=== PATIENT | male | born 1955 | race Caucasian/White ===

== ENCOUNTER 2018-04-17 15:14 | Emergency (ER) | payer BC ==
[2018-04-17 15:26] VITALS: TEMP 98.1; BMI 25.6
--- NOTE | 2018-04-17 15:39 | PDOC ---
History of Present Illness - General Chief Complaint: Chest Pain Stated Complaint: CHEST PAIN Time Seen by Provider: 04/17/18 15:19 History Source: Patient Exam Limitations: No Limitations - History of Present Illness Initial Comments: 04/17/18 15:40 Patient is a 62M with history of HLD, CAD s/p stents x2 here today complaining of chest pain over the past two weeks, worsening last night. Patient states that this doesn't feel as bad as his prior MIs, but does feel similar. He describes a substernal pressure that does not change with position, palpation, inspiration, activation or rest. Denies fevers, chills, nausea, vomiting. Denies history of blood clots, recent travel, unilateral leg swelling. 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 Stents done in [facility] and [facility]. Past History - Past Medical History Allergies/Adverse Reactions: Allergies Allergy/AdvReac Type Severity Reaction Status Date / Time No Known Allergies Allergy Verified 05/20/17 13:41 Home Medications: Ambulatory Orders Aspirin Coated [Ecotrin -] 325 mg PO HS 05/20/17 Clopidogrel Bisulfate [Clopidogrel] 75 mg PO HS 05/20/17 Lisinopril 10 mg PO HS 05/20/17 Simvastatin 40 mg PO HS 05/20/17 Metoprolol Succinate [Toprol Xl] 50 mg PO DAILY 04/17/18 Cardiac Disorders: Yes ([place], STENTS) COPD: No Hypercholesterolemia: Yes - Surgical History Abdominal Surgery: Yes (AGE 6) Cardiac Surgery: Yes (STENTS) - Suicide/Smoking/Psychosocial Hx Smoking History: Never smoked Have you smoked in the past 12 months: No Hx Alcohol Use: Yes (RARE) Drug/Substance Use Hx: No Substance Use Type: None Review of Systems - Review of Systems Comments:: 04/17/18 15:44 GENERAL/CONSTITUTIONAL: No fever or chills. No weakness. HEAD, EYES, EARS, NOSE AND THROAT: No change in vision. No ear pain or discharge. No sore throat. CARDIOVASCULAR: +chest pain No shortness of breath RESPIRATORY: No cough, wheezing, or hemoptysis. GASTROINTESTINAL: No nausea, vomiting, diarrhea or constipation. GENITOURINARY: No dysuria, frequency, or change in urination. MUSCULOSKELETAL: No joint or muscle swelling or pain. No neck or back pain. SKIN: No rash NEUROLOGIC: No headache, vertigo, loss of consciousness, or change in strength/ sensation. ENDOCRINE: No increased thirst. No abnormal weight change HEMATOLOGIC/LYMPHATIC: No anemia, easy bleeding, or history of blood clots. ALLERGIC/IMMUNOLOGIC: No hives or skin allergy. *Physical Exam - Vital Signs Last Vital Signs Temp Pulse Resp BP Pulse Ox 98.1 F 80 16 114/68 99 04/17/18 15:14 04/17/18 15:14 04/17/18 15:14 04/17/18 15:14 04/17/18 15:14 - Physical Exam Comments: 04/17/18 15:46 GENERAL: Awake, alert, and fully oriented, in no acute distress HEAD: No signs of trauma, normocephalic, atraumatic EYES: PERRLA, EOMI, sclera anicteric, conjunctiva clear ENT: Auricles normal inspection, hearing grossly normal, nares patent, oropharynx clear without exudates. Moist mucosa NECK: Normal ROM, supple, no lymphadenopathy, JVD, or masses LUNGS: No distress, speaks full sentences, clear to auscultation bilaterally HEART: Regular rate and rhythm, normal S1 and S2, no murmurs, rubs or gallops, peripheral pulses normal and equal bilaterally. ABDOMEN: Soft, nontender, normoactive bowel sounds. No guarding, no rebound. No masses EXTREMITIES: Normal inspection, Normal range of motion, no edema. No clubbing or cyanosis. NEUROLOGICAL: Cranial nerves II through XII grossly intact. Normal speech, normal gait, no focal sensorimotor deficits SKIN: Warm, Dry, normal turgor, no rashes or lesions noted. ED Treatment Course - LABORATORY CBC & Chemistry Diagram: 04/17/18 15:45 04/17/18 15:45 - RADIOLOGY Radiology Studies Ordered: Category Date Time Status CHEST X-RAY PORTABLE* [RAD] Stat Radiology 04/17/18 15:21 Ordered Medical Decision Making - Medical Decision Making 04/17/18 15:47 Patient is a 62M with history of bigeminy, CAD s/p stenting x2, HLD here today complaining of chest pain. Vitals normal and stable. DDx includes, but is not limited to: ACS, arrhythmia, pneumonia. Will do cbc, cmp, trop, pt/inr, ekg chest x-ray. Patient is stating that he does not wish to be admitted. EKG #1 shows sinus rhythm with pattern of bigeminy . No st elevations/ depressions. Left axis. Normal intervals. No significant t wave abnormalities. EKG #2 shows normal sinus rhythm with one PVC. No st elevations/depressions. Left axis. Normal intervals. No significant t wave abnormalities. 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 Refusing second trop. Will AMA after first troponin. 04/17/18 16:57 Trop negative. Patient will AMA. Return precautions given. *DC/Admit/Observation/Transfer Diagnosis at time of Disposition: Chest pain - Discharge Dispostion Disposition: AGAINST MEDICAL ADVICE Condition at time of disposition: Stable Decision to Admit order: No - Referrals - Patient Instructions Printed Discharge Instructions: DI for Chest Pain Additional Instructions: You were seen today in the ED for Chest Pain and left against medical advice. You are welcome to return at any time. Please return if you have any new, worsening or concerning symptoms. 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 - Post Discharge Activity
[2018-04-17 16:05] LABS: BASO % 0.6 % (0-2.0); EOS % 3.3 % (0-4.5); HEMATOCRIT 40.3 % (35.4-49); HEMOGLOBIN 13.7 GM/dl (11.7-16.9); LYMPH % 20.2 % (8-40); MCH 31.9 pg (25.7-33.7); MEAN CELL VOLUME 93.9 fl (80-96); MONO % 8.2 % (3.8-10.2); NEUT % 67.7 % (42.8-82.8); PLATELET COUNT 142 K/MM3 (134-434); RBC 4.29 M/mm3 (4.00-5.60); RDW 12.1 % (11.9-15.9); WHITE BLOOD COUNT 5.8 K/mm3 (4.0-10.8)
[2018-04-17 16:16] LABS: INR 1.03 (0.82-1.09); PROTHROMBIN TIME (PATIENT) 11.5 SEC (10.2-13.0)
[2018-04-17 16:21] LABS: ALBUMIN 3.9 g/dl (3.5-5.0); ALK PHOS 60 U/L (32-92); ANION GAP 9 MMOL/L (8-16); BILIRUBIN,TOTAL 0.7 mg/dl (0.2-1.0); BLOOD UREA NITROGEN 18 mg/dl (7-18); CALCIUM 8.6 mg/dl (8.4-10.2); CHLORIDE 99 mmol/L (98-107); CO2 28 mmol/L (22-28); CREATININE 1.3 mg/dl (0.6-1.3); GLUCOSE,RANDOM 138 mg/dl (74-106); POTASSIUM 4.1 mmol/L (3.5-5.1); SGOT/AST 29 U/L (10-42); SGPT/ALT 31 U/L (10-40); SODIUM 136 mmol/L (136-145); TOT PROT 6.3 g/dl (6.4-8.3)
--- NOTE | 2018-04-17 16:33 | PDOC ---
Attending Attestation - Resident Resident Name: Angel Cantu - ED Attending Attestation I have performed the following: I have examined & evaluated the patient, The case was reviewed & discussed with the resident, I agree w/resident's findings & plan, Exceptions are as noted - HPI HPI: 04/17/18 16:22 62 yo M h/o HTN, HLD, CAD s/p PCI and stenting Presenting to the ER with a complaint of chest pain Present for the past 2 weeks Worsened today No shortness of breath No recent travel, no lower extremity edema No cough - Physicial Exam PE: 04/17/18 16:24 GENERAL: The patient is in no acute distress. LUNGS: Breath sounds equal, clear to auscultation bilaterally. No wheezes, and no crackles. HEART:Regular rate and rhythm, normal S1 and S2 without murmur, rub or gallop. ABDOMEN: Soft, nontender, normoactive bowel sounds. EXTREMITIES: Normal range of motion, no edema. NEUROLOGICAL: Cranial nerves II through XII grossly intact. Normal speech. No focal neurological deficits. SKIN: Warm, Dry, normal turgor, no rashes or lesions noted. - Medical Decision Making 04/17/18 16:25 62 yo M MULTIPLE [employer]ARDI[employer] RISK [employer]CTORS Presenting with CHEST PAIN Pt refusing already to stay in the Hospital Will do labs Will do EKG Pt asked to contact [employer] for follow up 04/17/18 17:02 Laboratory Tests 04/17/18 16:33 Troponin I < 0.03 Pt states he must leave the ER BY 5:30 PM He will be leaving this ER AMA Clinical Impression: chest pain, initial presentation
[2018-04-17 17:51] VITALS: BP 113/73; PULSE 68
--- NOTE | 2018-04-18 14:21 | EKG ---
Test Reason : Blood Pressure : / mmHG Vent. Rate : 077 BPM Atrial Rate : 077 BPM P-R Int : 162 ms QRS Dur : 088 ms QT Int : 388 ms P-R-T Axes : 077 -49 053 degrees QTc Int : 439 ms SINUS RHYTHM WITH FREQUENT PREMATURE VENTRICULAR COMPLEXES LEFT AXIS DEVIATION SEPTAL INFARCT , AGE UNDETERMINED ABNORMAL ECG NO PREVIOUS ECGS AVAILABLE Confirmed by Mitchel Rolon MD ([id number]) on 04/18/2018 2:20:44 PM Referred By: Confirmed By:Mitchel Rolon MD
== END 2018-04-17 17:20 | disposition left against medical advice (07) ==
LOC: FER 15:14
DX: R07.9 Chest pain, unspecified (principal); E78.5 Hyperlipidemia, unspecified; I25.10 Atherosclerotic heart disease of native coronary artery without angina pectoris; Z95.5 Presence of coronary angioplasty implant and graft
CPT/HCPCS: 36415; 71045-TC-FY; 80053; 82550; 82553; 83735; 84484; 85025; 85610; 93005; 99285-25

== ENCOUNTER 2020-01-21 17:27 | Emergency (ER) | payer BC ==
[2020-01-21 17:30] VITALS: BP 111/80; PULSE 89; TEMP 98.2; BMI 27.0
[2020-01-21] MEDS ORDERED: TETANUS AND DIPHTHERIA TOXOID 0.5 ML DISP.SYRIN IM ONE (17:55)
[2020-01-21] MEDS ORDERED: DIPHTH,PERTUSS(ACELL),TET 0.5 ML DISP.SYRIN IM ONE (17:56)
--- NOTE | 2020-01-21 18:00 | PDOC ---
Documentation entered by Lola Scott SCRIBE, acting as scribe for Giselle Logan DO. Giselle Logan DO: This documentation has been prepared by the omaribe, Lola Scott SCRIBE, under my direction and personally reviewed by me in its entirety. I confirm that the documentation accurately reflects all work, treatment, procedures, and medical decision making performed by me. History of Present Illness - General Chief Complaint: Laceration Stated Complaint: cut my left knee Time Seen by Provider: 01/21/20 17:36 History Source: Patient Exam Limitations: No Limitations - History of Present Illness Initial Comments: 01/21/20 18:28 The patient is a 64-year-old male with a past medical history significant for IL (20 years ago, on blood thinners) who presents to the emergency department for lacerations. The patient reports he walked into a glass door around 3:00 pm, sustaining a laceration to his forehead and 2 lacerations to the left knee. The patient reports he put pressure on the knee wound to control bleeding and wrapped it with an medardo wrap. The patient reports daily use of Plavix and ASA. Allergies: NKA PCP: Dr. Addi TARIQ Past History - Medical History Allergies/Adverse Reactions: Allergies Allergy/AdvReac Type Severity Reaction Status Date / Time No Known Allergies Allergy Verified 01/21/20 17:28 Home Medications: Ambulatory Orders Clopidogrel Bisulfate [Clopidogrel] 75 mg PO HS 05/20/17 Lisinopril 10 mg PO HS 05/20/17 Simvastatin 40 mg PO HS 05/20/17 Metoprolol Succinate [Toprol Xl] 50 mg PO DAILY 04/17/18 Aspirin [ASA -] 81 mg PO DAILY 01/21/20 Cardiac Disorders: Yes ([place], STENTS) COPD: No Hypercholesterolemia: Yes - Surgical History Abdominal Surgery: Yes (AGE 6) Cardiac Surgery: Yes (STENTS) - Psycho-Social/Smoking History Smoking History: Never smoked Have you smoked in the past 12 months: No - Substance Abuse Hx (Audit-C & DAST Scrn) How often the patient has a drink containing alcohol: Never Score: In Men: 4 or > Positive; In Women: 3 or > Positive: 0 Screen Result (Pos requires Nsg. Audit-10AR): Negative In the last yr the pt used illegal drug/Rx for NonMed reason: No Score: Yes response is considered Positive: 0 Screen Result (Positive result requires Nsg. DAST-10): Negative Review of Systems - Review of Systems Able to Perform ROS?: Yes Comments:: 01/21/20 18:28 GENERAL/CONSTITUTIONAL: No fever or chills. No weakness. HEAD, EYES, EARS, NOSE AND THROAT: No change in vision. No ear pain or discharge. No sore throat. CARDIOVASCULAR: No chest pain or shortness of breath. RESPIRATORY: No cough, wheezing, or hemoptysis. GASTROINTESTINAL: No nausea, vomiting, diarrhea or constipation. GENITOURINARY: No dysuria, frequency, or change in urination. MUSCULOSKELETAL: No joint or muscle swelling or pain. No neck or back pain. SKIN: +forehead laceration and knee laceration. No rash NEUROLOGIC: No headache, vertigo, loss of consciousness, or change in strength/sensation. ENDOCRINE: No increased thirst. No abnormal weight change. HEMATOLOGIC/LYMPHATIC: +on blood thinners. No anemia, easy bleeding, or history of blood clots. ALLERGIC/IMMUNOLOGIC: No hives or skin allergy. *Physical Exam - Vital Signs Last Vital Signs Temp Pulse Resp BP Pulse Ox 98.2 F 89 18 111/80 99 01/21/20 17:27 01/21/20 17:27 01/21/20 17:27 01/21/20 17:27 01/21/20 17:27 - Physical Exam 01/21/20 18:29 GENERAL: Awake, alert, and fully oriented, in no acute distress HEAD: No signs of trauma EYES: PERRLA, EOMI, sclera anicteric, conjunctiva clear ENT: Auricles normal inspection, hearing grossly normal, nares patent, oropharynx clear without exudates. Moist mucosa NECK: Normal ROM, supple, no lymphadenopathy, JVD, or masses LUNGS: Breath sounds equal, clear to auscultation bilaterally. No wheezes, and no crackles HEART: Regular rate and rhythm, normal S1 and S2, no murmurs, rubs or gallops ABDOMEN: Soft, nontender, nondistended. EXTREMITIES: Normal range of motion, no edema. NEUROLOGICAL: Cranial nerves II through XII grossly intact. Normal speech, normal gait SKIN: +linear superficial cut to his forehead, not actively bleeding, 2 stellate laceration to the proximal aspect of the knee 1x1cm, U shaped avulsion flat laceration to the distal aspect of the knee Medical Decision Making - Medical Decision Making 01/21/20 17:58 a/p: 64yo male with multiple lacerations to the L knee and his forehead after falling into a glass door and the glass shattering -pt is on asa and plavix -large laceration to the distal knee and smaller stellate lacs to the proximal knee -superficial lac to the forehead -no loc -venous bleeding to distal knee lac -will send for xray -will need repair of the lacerations -will update tetanus 01/21/20 18:36 xray reviewed, poss small amount of glass, will wash out wound re-examination of the wound - distal knee wound, able to range the knee but on deep exam pt with poss patellar tendon laceration in addition to skin laceration call placed to Dr. Gonzalez/rod for evaluation pt updated at this time 01/21/20 18:58 pt with straight leg raise and able to actively extend the knee 01/21/20 19:20 pt signed out the oncoming ed physician pending ct imaging to eval for arthrotomy pt updated on pending ct imaging and the plan Discharge - Discharge Information Problems reviewed: Yes Clinical Impression/Diagnosis: Laceration Condition: Stable - Follow up/Referral - Patient Discharge Instructions - Post Discharge Activity
[2020-01-21] MEDS ORDERED: LIDOCAINE HCL 1%, 10 MG/ML (50 mL VIAL) SQ ONE (18:20)
[2020-01-21] MEDS ORDERED: LIDOCAINE HCL 1%, 10 MG/ML (20ML VIAL) ONE (18:27)
--- NOTE | 2020-01-21 21:39 | PDOC ---
*Physical Exam - Vital Signs Last Vital Signs Temp Pulse Resp BP Pulse Ox 98.2 F 89 18 111/80 99 01/21/20 17:27 01/21/20 17:27 01/21/20 17:27 01/21/20 17:27 01/21/20 17:27 ED Treatment Course - Medications Given in the ED: ED Medications Discontinued Medications Generic Name Dose Route Start Last Admin Trade Name Arti PRN Reason Stop Dose Admin Diphtheria/Tetanus/Acell Pertussis 0.5 ml 01/21/20 17:56 01/21/20 18:01 Boostrix - IM 01/21/20 17:57 0.5 ml .ONCE ONE Administration Tetanus/Diphtheria Toxoids Adsorbed 0.5 ml 01/21/20 17:55 01/21/20 18:02 Decavac IM 01/21/20 17:56 Not Given .ONCE ONE ED Progress Note - Progress Note Progress Note: Care of this patient received from Dr. Logan Patient sustained large laceration of the left knee area (just distal to the patella) when he accidentally walked into a closed glass sliding door in his home. To fully evaluate whether the joint space had been entered, CT scan of the left knee without intravenous contrast was performed. Results interpreted by Dr. Fan of the radiology staff: No gross fracture or dislocation identified. There was mild degenerative narrowing of the medial knee joint compartment and a small amount of joint effusion seen to be present. There was prepatellar subcutaneous edema with mild soft tissue swelling. No gross soft tissue air identified. No evidence of joint space free air present on CT scan. No need for operative joint washout. Under sterile technique, 8 cm curvilinear horizontal full-thickness laceration below left patella and two 1 cm stellate lacerations above patella prepped using Hibiclens solution. Local anesthesia performed with 4.5 mL of 1% lidocaine infiltrated into the area around the large laceration and 1 mL into the 2 stellate lacerations. Sub-patellar wound inspected: hemostasis acheived via transfixion sutures of 4-0 vicryl on small bleeding vessels. No evidence of complete disruption of patellar tendon seen . Wound irrigated using 80 mL of sterile normal saline. Deep soft tissue layers closed with 10 interrupted sutures of 4- 0 Vicryl. Wound edges closely approximated and wound closed using 12 interrupted sutures of 4-0 nylon. Small stellate lacerations irrigated with 20 mL sterile normal saline in each and closed with 4-0 nylon: More proximal one with 3 interrupted sutures and more distal one with 1 suture. Bacitracin ointment followed by sterile gauze and Dominick wrap applied Patient tolerated procedure well Knee immobilizer placed on left leg. Patient has been recommended to elevate the left leg is much as possible, especially over the next 2 days and to keep the knee immobilizer in place until being seen by orthopedics. He should call Drs. Chni/Carlos office in the a.m. and arrange for follow-up within 48 hours. Original dressing should be kept in place until seen by orthopedics. Augmentin 875/125 dose given in the emergency room; prescription for 7-day course of Augmentin 875/125 twice a day sent to patient's pharmacy Discharge - Discharge Information Problems reviewed: Yes Clinical Impression/Diagnosis: Laceration Condition: Stable Disposition: HOME - Additional Discharge Information Prescriptions: Amoxicillin/Potassium Clav [Augmentin 875-125 Tablet] 1 each PO BID #14 tablet - Follow up/Referral Referrals: Oren Chin MD [Staff Physician] - - Patient Discharge Instructions Patient Printed Discharge Instructions: How to Care for a Laceration After Repair Additional Instructions: keep original dressing in place , as dry as possible, until seen by orthopedist Keep knee immobilizer in place until seen by orthopedist Call orthopedist office (Drs. Chin/Carlos) in a.m. and arrange for follow-up within 48 hours Augmentin 875/125 twice a day for 1 weektake with a meal Keep left leg elevated at heart level or above as much as possible for the next 24 hours Have sutures removed in 2 weeks; return or see your doctor if area is red, swollen or more painful prior to removal of sutures - Post Discharge Activity
[2020-01-21] MEDS ORDERED: AMOX TR/POT CLAV 875MG/125MG TABLETS (FP) ONE ×2 (22:50→22:57)
[2020-01-21] MEDS ORDERED: AMOX TR/POT CLAV 875MG/125MG TABLETS (FP) PO ONE ×2 (22:54→23:08)
== END 2020-01-21 23:09 | disposition home or self-care (01) ==
LOC: FER 17:27
PROC: 3E0234Z Introduction of Serum, Toxoid and Vaccine into Muscle, Percutaneous Approach (ICD-10-PCS; principal; 2020-01-21)
PROC: 0HQJXZZ Repair Left Upper Leg Skin, External Approach (ICD-10-PCS; principal; 2020-01-21)
DX: S81.812A Laceration without foreign body, left lower leg, initial encounter (principal); W25.XXXA Contact with sharp glass, initial encounter
CPT/HCPCS: 73560-TC-LT-FY; 73700-TC-RT; 90715; 99284-25

== ENCOUNTER 2020-01-26 16:33 | Emergency (ER) | payer BC ==
[2020-01-26] MEDS ORDERED: FLUORESCEIN NA 1 EA STRIP ONE (16:49)
[2020-01-26] MEDS ORDERED: TETRACAINE 0.5% OPHTH SOLN 2 ML BOTTLE ONE (16:49)
[2020-01-26 17:04] VITALS: BP 122/81; PULSE 83; TEMP 98.2; BMI 26.3
--- NOTE | 2020-01-26 17:05 | PDOC ---
Documentation entered by Peyton Hernandez SCRIBE, acting as scribe for Artis Deluna MD. Artis Deluna MD: This documentation has been prepared by the corettaeKaitlin Maria, SCRIBE, under my direction and personally reviewed by me in its entirety. I confirm that the documentation accurately reflects all work, treatment, procedures, and medical decision making performed by me. History of Present Illness - General Chief Complaint: Eye Problem Stated Complaint: LEFT EYE RED History Source: Patient Exam Limitations: No Limitations - History of Present Illness Initial Comments: 01/26/20 16:58 The patient is a 64-year-old male with a past medical history significant for hypertension, hyperlipidemia and CA (20 years ago, on blood thinners) who presents to the emergency department for further evaluation of redness in his left eye. As per patient, he notes he has an episode of stinging in his left eye yesterday that lasted 10 seconds. States he looked in the mirror this morning and noticed the redness in his eye prompting him to the ER. Allergies: NKDA PCP: Dr. Addi TARIQ Past History - Medical History Allergies/Adverse Reactions: Allergies Allergy/AdvReac Type Severity Reaction Status Date / Time No Known Allergies Allergy Verified 01/26/20 16:34 Home Medications: Ambulatory Orders Clopidogrel Bisulfate [Clopidogrel] 75 mg PO HS 05/20/17 Lisinopril 10 mg PO HS 05/20/17 Simvastatin 40 mg PO HS 05/20/17 Metoprolol Succinate [Toprol Xl] 50 mg PO DAILY 04/17/18 Amoxicillin/Potassium Clav [Augmentin 875-125 Tablet] 1 each PO BID #14 tablet 01/21/20 Aspirin [ASA -] 81 mg PO DAILY 01/21/20 Cardiac Disorders: Yes (CA, STENTS) COPD: No Hypercholesterolemia: Yes - Surgical History Abdominal Surgery: Yes (AGE 6) Cardiac Surgery: Yes (STENTS) - Psycho-Social/Smoking History Smoking History: Never smoked Have you smoked in the past 12 months: No Review of Systems - Review of Systems Able to Perform ROS?: Yes Comments:: 01/26/20 16:58 CONSTITUTIONAL: Absent: Fever, Chills, Diaphoresis, Generalized Weakness, Malaise, Loss of Appetite HEENT:+redness in his eye. Absent: Rhinorrhea, Nasal Congestion, Throat Pain, Throat Swelling, Difficulty Swallowing, Mouth Swelling, Ear Pain Visual Changes CARDIOVASCULAR: Absent: Chest Pain, Syncope, Palpitations, Irregular Heart Rate, Lightheadedness, Peripheral Edema RESPIRATORY: Absent: Cough, Shortness of Breath, SOB with Exertion, Orthopnea, Wheezing, Stridor, Hemoptysis GASTROINTESTINAL: Absent: Abdominal pain, Abdominal Distension, Nausea, Vomiting, Diarrhea, Constipation, Melena, Hematochezia GENITOURINARY: Absent: Dysuria, Frequency, Urgency, Hesitancy, Flank Pain, Genital Pain MUSCULOSKELETAL: Absent: Myalgia, Arthralgia, Joint Swelling, Back pain, Neck Pain SKIN: Absent: Rash, Itching, Pallor HEMEATOLOGIC/IMMUNOLOGIC: Absent: Easy Bleeding, Easy Bruising, Lymphadenopathy, Frequent infections ENDOCRINE: Absent: Unexplained Weight Gain, Unexplained Weight Loss, Heat Intolerance, Cold Intolerance NEUROLOGIC: Absent: Headache, Focal Weakness, Paresthesias, Vertigo, Lightheadedness, Unsteady Gait, Seizure, Mental Status Changes, Incontinence PSYCHIATRIC: Absent: Anxiety, Depression *Physical Exam - Physical Exam 01/26/20 17:00 Patient is awake, alert, oriented. He recently had sutures placed in his left knee, and he is wearing a knee brace. The dressing is clean, dry and intact. He is not here for his knee. On examination, acuity is normal. The right eye has normal lid, lashes, conjunctiva, cornea, pupil, and extraocular movements. The left eye has a hematoma over the medial conjunctiva. The cornea is normal including tetracaine and fluorescein. The pupil is normal and reactive. Extraocular movements are normal. The lateral portion of the left eye has a normal conjunctiva. There is no conjunctivitis. 01/26/20 17:05 20/20 right 20/15 left At 20 feet Medical Decision Making - Medical Decision Making 01/26/20 17:02 Patient is a 64-year-old man who felt some stinging in his left eye and touched it with his finger. Afterwards he looked into the mirror and noted some redness over the medial aspect of the left eye. There is no visual change, no pain, no tearing, no itching. On examination, he has a some conjunctival hematoma on the medial aspect of the left conjunctiva. Cornea, and remainder of eye exam is normal. Impression: Left eye with sub-conjunctival hematoma. Patient advised to wait up to 2 weeks for resolution, no specific treatment needed. Discharge - Discharge Information Problems reviewed: Yes Clinical Impression/Diagnosis: Subconjunctival hematoma Qualifiers: Laterality: left Qualified Code(s): H11.32 - Conjunctival hemorrhage, left eye Condition: Stable Disposition: HOME - Admission No - Follow up/Referral Referrals: Guillermo Soriano MD [Staff Physician] - - Patient Discharge Instructions Patient Printed Discharge Instructions: DI for Subconjunctival Hemorrhage Additional Instructions: Today you were evaluated for redness of your left eye. The diagnosis is a sub- conjunctival hematoma. This is basically a small blood vessel that ruptured in the white part of your conjunctiva, causing redness of the eye. This is a benign condition, meaning that it does not cause any vision problems and it will resolve on its own over the next 2 weeks. Expect the redness to take some time to go away. There is no need to follow-up with an chemical analytical sampler unless you have other symptoms. - Post Discharge Activity
== END 2020-01-26 17:33 | disposition home or self-care (01) ==
LOC: FER 16:33
DX: H11.32 Conjunctival hemorrhage, left eye (principal)
CPT/HCPCS: 99283-25

== ENCOUNTER 2021-09-09 13:47 | Emergency (ER) | payer OTHER, MEDICARE, BC ==
[2021-09-09 14:08] VITALS: BP 116/70; PULSE 89; BMI 24.7
== END 2021-09-09 15:09 | disposition home or self-care (01) ==
LOC: JERFT 13:47
DX: M79.671 Pain in right foot (principal)
CPT/HCPCS: 73630-TC-RT-FY; 99283-25